=== PATIENT | female | born 1970 | race African-American/Black ===

== ENCOUNTER 2022-01-12 07:26 | Day surgery (SDC) | payer BC ==
[2022-01-10 13:14] VITALS: BMI 49.9
[2022-01-12 08:50] VITALS: BP 133/69
[2022-01-12] MEDS ORDERED: Iopamidol-M 300 61% 15 ML VIAL ONE (09:48)
== END 2022-01-12 10:15 | disposition home or self-care (01) ==
LOC: RAD 07:26
PROVIDERS: ATTEND Neurological Surgery
PROC: B01B1ZZ Fluoroscopy of Spinal Cord using Low Osmolar Contrast (ICD-10-PCS; principal; 2022-01-12)
DX: M47.22 Other spondylosis with radiculopathy, cervical region (principal); M47.12 Other spondylosis with myelopathy, cervical region; M50.11 Cervical disc disorder with radiculopathy, high cervical region; M50.01 Cervical disc disorder with myelopathy, high cervical region; Z79.899 Other long term (current) drug therapy; Z98.1 Arthrodesis status
CPT/HCPCS: 62302; 72126

== ENCOUNTER 2022-02-16 12:29 | Outpatient (CLI) | payer BC ==
[2022-02-16 13:46] LABS: Hemoglobin 12.8 g/dL (12.0-15.5); Mean Corpuscular Hemoglobin 28.8 pg (27.0-33.0); Mean Corpuscular Volume 87.2 fl (81.6-98.3); Mean Platelet Volume 9.8 fl (7.4-10.4); Platelet Count 327 10x3/uL (150-450); RBC Distribution Width 14.5 % (11.5-14.5); Red Blood Cell (RBC) Count 4.45 10x6/uL (3.90-5.03); White Blood Cell (WBC) Count 5.4 10x3/uL (3.5-10.5)
[2022-02-16 15:12] LABS: Anion Gap 14 mmol/L (10-20); BUN (Urea Nitrogen) 11 mg/dL (9.8-20.1); Calc. Creatinine Clearance 0 mL/min (70-130); Carbon Dioxide 22 mmol/L (22-29); Chloride 106 mmol/L (98-107); Estimated GFR 89; Glucose 88 mg/dL (70-105); Potassium 4.1 mmol/L (3.5-5.1); Sodium 138 mmol/L (136-145)
== END 2022-02-16 12:30 | disposition home or self-care (01) ==
LOC: LABBT 12:29
PROVIDERS: ATTEND Neurological Surgery
DX: Z01.818 Encounter for other preprocedural examination (principal); M47.12 Other spondylosis with myelopathy, cervical region
CPT/HCPCS: 80048; 85027; 93005; 93010

== ENCOUNTER 2022-03-10 08:59 | Outpatient (CLI) | payer BC | END 2022-03-10 09:00 | disposition home or self-care (01) | LOC: TBSIIMAG 08:59 | PROVIDERS: ATTEND Neurological Surgery | DX: M47.12 Other spondylosis with myelopathy, cervical region (principal); M47.22 Other spondylosis with radiculopathy, cervical region; Z98.890 Other specified postprocedural states | CPT/HCPCS: 72040 ==

== ENCOUNTER 2022-04-27 13:37 | Outpatient (CLI) | payer BC | END 2022-04-27 13:38 | disposition home or self-care (01) | LOC: TBSIIMAG 13:37 | PROVIDERS: ATTEND Neurological Surgery | DX: M48.02 Spinal stenosis, cervical region (principal); Z98.890 Other specified postprocedural states | CPT/HCPCS: 72040 ==